=== PATIENT | male | born 1995 | race African-American/Black ===

== ENCOUNTER 2019-01-16 02:58 | Emergency (ER) | payer OTHER ==
[~2019-01-16] VITALS: Ht 188 cm; Wt 86.2 kg
[2019-01-16] MEDS ORDERED: RT-ALBUTEROL SULF 2.5 MG/3 ML PRE-MIX VIAL INH STA (03:23)
--- NOTE | 2019-01-16 03:31 | ED Cough/URI ---
General Chief Complaint: Respiratory Problems Stated Complaint: COUGH,SOB Source: patient, other Exam Limitations: no limitations History of Present Illness Date Seen by Provider: Jan 16, 2019 Time Seen by Provider: 03:18 Initial Comments Patient presents to ER by private conveyance with significant other chief complaint 2-3 days sometimes productive cough of clear sputum. He has some shortness of breath difficulty getting his air. He has bronchitis couple times a year. No history of asthma or COPD. He does not smoke cigarettes but he does state and occasionally uses tobacco. He has not had any fevers chills nausea vomiting chest pain or diarrhea. Allergies and Home Medications Allergies Coded Allergies: Penicillins (Verified Allergy, Unknown, 01/16/19) Patient Home Medication List Home Medication List Reviewed: Yes Review of Systems Review of Systems Constitutional: No chills, No diaphoresis, No fever EENTM: No ear discharge, No ear pain Respiratory: cough, phlegm (occasional clear), short of breath, wheezing Cardiovascular: No chest pain, No palpitations Gastrointestinal: No abdominal pain, No constipation, No diarrhea Genitourinary: No discharge, No dysuria Past [id number] Hx Patient Social History Alcohol Use: Denies Use Recreational Drug Use: No Type Used: Electronic/Vapor, Smokeless Tobacco Recent Foreign Travel: No Contact w/Someone Who Travel: No Physical Exam Vital Signs - First Documented 01/16/19 03:18 Temp 98.6 Pulse 93 Resp 18 B/P (MAP) 158/101 (120) Pulse Ox 94 O2 Delivery Room Air Capillary Refill : Height: '" Weight: lbs. oz. kg; BMI Method: General Appearance: WD/WN, no apparent distress Eyes: Bilateral Eye Normal Inspection, Bilateral Eye PERRL, Bilateral Eye EOMI HEENT: PERRL/EOMI, normal ENT inspection Neck: full range of motion, normal inspection Respiratory: no respiratory distress, no accessory muscle use, decreased breath sounds, wheezing (moderate), expiration (prolonged) Cardiovascular: normal peripheral pulses, regular rate, rhythm, no edema Gastrointestinal: normal bowel sounds, non tender, soft Progress/Results/Core Measures Suspected Sepsis SIRS Temperature: Pulse: Respiratory Rate: Blood Pressure / Mean: Results/Orders My Orders Orders - LINDA AMES Albuterol Pre-Mix Nebs (Rt) (Proventil (01/16/19 03:23) Svn Small Volume Nebulizer (01/16/19 03:23) Rx-Albuterol Inhaler (Rx-Proair) (01/16/19 03:42) Vital Signs/I&O 01/16/19 01/16/19 03:18 03:37 Temp 98.6 Pulse 93 Resp 18 B/P (MAP) 158/101 (120) Pulse Ox 94 89 O2 Delivery Room Air Room Air Capillary Refill : Progress Note #1: Time: 03:31 Progress Note Albuterol and chest x-ray. We'll then reexamined. Heart rate is 90 but otherwise vital signs are fine. Afebrile. Probably bronchitis. Progress Note #2: Time: 03:44 Progress Note Breath sounds are improved however he still has wheezing. Plan to send him home with a pro-air inhaler. Patient has declined to do the chest x-ray. Diagnostic Imaging Diagonstic Imaging: Xray Plain Films/CT/US/NM/MRI: chest (2v) Reviewed: Reviewed by Me Departure Impression Primary Impression: Bronchitis Disposition: 01 HOME, SELF-CARE Condition: Stable Departure-Patient Inst. Decision time for Depature: 03:58 Referrals: [facility] (PCP/Family) Primary Care Physician Patient Instructions: Acute Bronchitis, Adult (DC) Add. Discharge Instructions: I suspect with your history of bronchitis and the severity of your wheezing that she may have mild, intermittent asthma yet to be diagnosed. Please follow- up with your primary care doctor in the next 2-4 weeks to discuss reexamination and possible diagnosis. Use the albuterol inhaler every 6 hours for the next 1-2 weeks. Use the albuterol inhaler 2 puffs every 4 hours as necessary for wheezing or shortness of breath. Return to the ER if he cannot catch her breath despite this. Use Tylenol and/or ibuprofen for fever, body aches or malaise. Humidifiers, plenty of fluids, vapor rubs and rest are necessary. All discharge instructions reviewed with patient and/or family. Voiced understanding. Scripts Albuterol Sulfate (PROAIR HFA) 1 Puff Puff 2 PUFF IH Q4H PRN for WHEEZING for 30 Days, #1 EA 0 Refills 1 PUFF = 90 MCG Prov: LINDA AMES 01/16/19 Work/School Note: Work Release Form Date Seen in the Emergency Department: Jan 16, 2019 Return to Work: Jan 17, 2019 Restrictions: No Restrictions LINDA AMES Jan 16, 2019 03:31
[2019-01-16] MEDS ORDERED: RX-ALBUTEROL INHALER (PROAIR) 8 GM IH STA (03:42)
--- NOTE | 2019-01-16 03:52 | NUR ---
PT REFUSES CHEST XRAY @ THIS TIME.
[2019-01-16] MEDS ORDERED: RT-ALBUINH IH (04:00)
[2019-01-16 04:03] VITALS: BP 158/101
== END 2019-01-16 04:03 | disposition home or self-care (01) ==
LOC: ER 03:02
DX: J40 Bronchitis, not specified as acute or chronic (principal); F17.290 Nicotine dependence, other tobacco product, uncomplicated; Z88.0 Allergy status to penicillin
CPT/HCPCS: 94640; 99283